=== PATIENT | female | born 1970 | race Caucasian/White ===

== ENCOUNTER → 2023-11-29 18:27 | Outpatient (REF) | payer BC, SELFPAY | LOC: WDC 18:27 | PROVIDERS: ATTENDING PHYSICIAN Family Medicine | DX: R92.8 Other abnormal and inconclusive findings on diagnostic imaging of breast (principal); Z12.31 Encounter for screening mammogram for malignant neoplasm of breast | CPT/HCPCS: 77063; 77067 ==

== ENCOUNTER → 2024-08-25 14:09 | Outpatient (REF) | payer BC, SELFPAY | LOC: RAD 14:09 | PROVIDERS: ATTENDING PHYSICIAN Family Medicine | DX: M79.671 Pain in right foot (principal) | CPT/HCPCS: 73630 ==